=== PATIENT | female | born 1960 | race Caucasian/White ===

== ENCOUNTER 2023-03-25 19:28 | Emergency (ER) | payer OTHER, SELFPAY ==
--- NOTE | 2023-03-25 19:29 | ED.CHESTPAIN ---
HPI - Chest Pain General Chief Complaint: Back Pain/Injury Stated Complaint: Anxiety Time Seen by Provider: 03/25/23 19:29 Source: patient Mode of arrival: ambulatory Limitations: no limitations History of Present Illness HPI narrative: Jane is a 63-year-old female patient presenting to the clinic today with complaints of heart fluttering sensation, chest discomfort, and back pain. Reports symptoms started a few days ago. She reports she thinks that she may have muscle strain picking up her grandson. Is concerned about the pain and is having anxiety. Denies any shortness of breath. Denies any radiation of pain in her arm or jaw. Related Data Home Medications Medication Instructions Recorded Confirmed anastrozole 1 mg tablet 1 mg PO DAILY 03/25/23 03/25/23 fluticasone 250 mcg-salmeterol 50 2 inh inhalation DAILY 03/25/23 03/25/23 mcg/dose blistr powdr for inhalation (Advair Diskus) hydrochlorothiazide 12.5 mg tablet 12.5 mg PO DAILY 03/25/23 03/25/23 lisinopril 40 mg tablet 40 mg PO DAILY 03/25/23 03/25/23 lorazepam 0.5 mg tablet 0.5 mg PO PRN PRN Anxiety 03/25/23 03/25/23 metformin 500 mg tablet,extended 500 mg PO BID 03/25/23 03/25/23 release 24 hr montelukast 10 mg tablet 10 mg PO HS 03/25/23 03/25/23 rosuvastatin 10 mg tablet 10 mg PO DAILY 03/25/23 03/25/23 semaglutide 0.25 mg or 0.5 mg (2 mg subcut 03/25/23 mg/3 mL) subcutaneous pen injector (Ozempic) Allergies Allergy/AdvReac Type Severity Reaction Status Date / Time No Known Allergies Allergy Verified 03/25/23 19:29 Review of Systems Review of Systems: Pertinent positives per HPI. Patient denies any fever, chills, rash, headache, visual changes, dizziness, cough, shortness of breath, nausea, vomiting, diarrhea, constipation, abdominal pain, or any urinary issues. PMFSH Comments At the time of my signature, I reviewed and agree with the nursing past medical, surgical, social, and family history. There is no relevant family history pertinent to the patient complaint. Exam Narrative: General: Well-developed, well nourished, in no apparent distress Head: Normocephalic, atraumatic Eyes: Pupils equally round and reactive to light bilaterally, EOM intact, sclera and conjunctive clear, no discharge, lids normal Ears: TMs intact and clear, ear canals clear, no drainage, grossly hearing normal. Nose: Nares patent, no discharge, no inflammation, no sinus tenderness. Mouth: Oral pharynx without lesions or masses, good dentition, MMM. Neck: Supple, trachea midline, no enlargement of anterior or posterior cervical nodes, no thyroid masses or goiter palpable. Cardio: Regular rate and rhythm, s1 and s2 normal, no murmur appreciated. Resp: Clear to auscultation bilaterally, no rhonchi, rales, wheezing or rubs Course Course Emergency Course: Portions of this record may have been created with voice recognition software. Level of Care: Express Care Visit Vital Signs Vital signs: Vital signs reviewed MDM - Chest Pain MDM Narrative Medical decision making narrative: At the time of visit patient is resting comfortably on the exam table. EKG states that patient is in atrial flutter however, it appears that she has normal P wave and they march out regularly. No ST elevation- possible old septal infarction of undetermined age. Patient does report fluttering her chest that comes and goes, chest aching, and back pain, recommend transfer to the ER for further workup. Patient agrees to transfer. Contacted David at [facility] and report was given for continuity of care and she accepts patient Differential Diagnosis Differential diagnosis: Likely atypical chest pain, st elevation myocardial infarction, costochondritis, chest pain and other (Atrial flutter/atrial fib, palpitations, non STEMI) ECG Data EKG #1: Attestation: I personally reviewed and interpreted this ECG as follows: ECG completion date: 03/25/23 ECG co
[2023-03-25 19:48] VITALS: BP 110/70; PULSE 106; RESP 16; TEMP 35.5; O2SAT 96
--- NOTE | 2023-03-25 19:49 | ECG_ITS ---
Measurements Intervals [place] Rate: 99 P: TN: 0 QRS: -58 QRSD: 114 T: 79 QT: 350 QTc: 451 Interpretive Statements SINUS RHYTHM LEFT ANTERIOR FASCICULAR BLOCK CANNOT RULE OUT SEPTAL INFARCT, AGE INDETERMINATE ABNORMAL ECG NO PREVIOUS ECG AVAILABLE FOR COMPARISON Electronically Signed On 03-26-2023 8:45:25 CDT by Frank Reagan D.O.
== END 2023-03-25 20:23 | disposition short-term general hospital (02) ==
PROVIDERS: Emergency Provider Nurse Practitioner Family; PCP Physician Assistant
DX: I49.8 Other specified cardiac arrhythmias (principal); I44.4 Left anterior fascicular block; R07.9 Chest pain, unspecified; M54.9 Dorsalgia, unspecified; E78.00 Pure hypercholesterolemia, unspecified; I10 Essential (primary) hypertension; J45.909 Unspecified asthma, uncomplicated; E11.9 Type 2 diabetes mellitus without complications; Z85.3 Personal history of malignant neoplasm of breast; F41.9 Anxiety disorder, unspecified
CPT/HCPCS: 93005; 99213; G0463

== ENCOUNTER 2023-03-25 20:47 | Emergency (ER) | payer OTHER, SELFPAY ==
--- NOTE | 2023-03-25 20:49 | ECG_ITS ---
Measurements Intervals [place] Rate: 95 P: 68 FL: 180 QRS: -51 QRSD: 114 T: 73 QT: 361 QTc: 456 Interpretive Statements SINUS RHYTHM LEFT ANTERIOR FASCICULAR BLOCK CANNOT RULE OUT SEPTAL INFARCT, AGE INDETERMINATE ABNORMAL ECG COMPARED TO ECG 03/25/2023 19:48:02 NO SIGNIFICANT CHANGES Electronically Signed On 03-26-2023 8:49:04 CDT by Frank Reagan D.O.
[2023-03-25 20:51] VITALS: BP 156/92; PULSE 98; RESP 18; TEMP 36.6; O2SAT 96
--- NOTE | 2023-03-25 21:30 | PC.NURSE ---
Patient had EKG completed and then decided to leave the ED. Patient alert and ambulatory out ED exit.
== END 2023-03-25 21:34 | disposition left against medical advice (07) ==
PROVIDERS: Emergency Provider Emergency Medicine; PCP Physician Assistant
DX: R94.31 Abnormal electrocardiogram [ECG] [EKG] (principal)
CPT/HCPCS: 93005; 99199